=== PATIENT | male | born 1980 | race Caucasian/White ===

== ENCOUNTER 2023-03-06 07:07 | Observation (INO) | payer BC, SELFPAY ==
--- NOTE | 2023-02-07 13:35 | RAD_ITS ---
EXAM: XR Chest 2 Views INDICATION: Male, 42 years old. Preoperative evaluation TECHNIQUE: PA and lateral views COMPARISON: None FINDINGS: DEVICES: None LUNGS: No confluent air space opacity. No concerning pulmonary nodule. No pleural effusion or pneumothorax. MEDIASTINUM: Cardiac and mediastinal silhouettes are within normal limits. No central pulmonary vascular congestion. . SKELETAL STRUCTURES: No acute skeletal abnormality. Mild multilevel degenerative changes in the spine. UPPER ABDOMEN: Unremarkable RAD/Chest PA and Lateral IMPRESSION: No acute cardiopulmonary disease Electronically Signed: Brayan Mercedes MD at 2:01 EDT ,
--- NOTE | 2023-02-07 13:38 | EKG12_ITS ---
Test Reason : PRE OP Blood Pressure : / mmHG Vent. Rate : 101 BPM Atrial Rate : 101 BPM P-R Int : 160 ms QRS Dur : 080 ms QT Int : 328 ms P-R-T Axes : 037 009 041 degrees QTc Int : 425 ms Sinus tachycardia Possible Inferior infarct , age undetermined Abnormal ECG Confirmed by MICHAEL KENDALL, MEG ([id number]), managing editor MICHEL GUTIÉRREZ ([id number]) on 02/10/2023 8:33:23 AM Referred By: KRISHNA Confirmed By:ADELA RODRIGUEZ MD
[2023-02-07 14:16] LABS: Basophil# 0.09 X10^3/uL; Basophil% 1.1 % (0-1); Eosinophil# 0.34 X10^3/uL; Eosinophils% 4.1 % (0-5); Hematocrit 46.6 % (40-54); Hemoglobin 15.6 g/dL (13.0-16.5); Lymphocyte % 37.7 % (19-41); Mean Corp Hgb Conc 33.5 g/dL (32-36); Mean Corpuscular Volume 92.6 fL (80-94); Monocyte# 0.66 X10^3/uL; NRBC Flagged by Analyzer 0 % (0-5); Neutrophil # 4.02 X10^3/uL (2.7-7.7); Platelet Count 272 K/mm3 (150-450); RBC Distribution Width CV 12.3 % (11.6-14.6); RBC Distribution Width SD 41.6 fl (35.1-43.9); Red Blood Count 5.03 M/mm3 (4.6-6.2); White Blood Count 8.2 K/mm3 (4.4-11.0)
[2023-02-07 14:24] LABS: Prothrombin Time (Protime)PT. 13.6 SECONDS (11.7-14.9)
[2023-02-07 14:25] LABS: Partial Thromboplast Time 27.6 Seconds (24.1-36.2)
[2023-02-07 14:44] LABS: Anion Gap 4 (5-15); BUN 5 mg/dL (7-18); BUN/Creat Ratio 3.6 RATIO (10-20); Calcium,Total 9.1 mg/dL (8.5-10.1); Chloride 108 mmol/L (98-107); Creatinine, Serum 1.38 mg/dL (0.70-1.30); EST Glomerular Filtration Rate 60 mL/min (>60); Est Glom Filt Rate - Afr Amer 73 mL/min (>60); Glucose 92 mg/dL (74-106); Potassium 3.6 mmol/L (3.5-5.1); Sodium Level 139 mmol/L (136-145)
[2023-03-06] VITALS (13 sets, daily range): BP systolic 108–134; BP diastolic 70–95; PULSE 70–89; RESP 16–18; TEMP 36.1–37; O2SAT 94–99; BMI 40.8
[2023-03-06] MEDS: Lactated Ringers 1,000 ML 15 ML IV (06:38)
--- NOTE | 2023-03-06 07:02 | OP.PCM_ITS ---
Report of Operation Date of Procedure: 03/06/23 Surgeon: Yefri Cabrera Type of Anesthesia: General Drains: Hemovac Description of Procedure: Preop diagnosis: 1. Lumbar stenosis, with spondylosis 2. Lumbar degenerative disc disease Postop diagnosis: 1. Lumbar stenosis, with spondylosis 2. Lumbar degenerative disc disease Procedures performed: 1. posterior lumbar interbody fusion 2. Insertion of intervertebral biomechanical device x1 3. Structural allograft for spinal fusion 4. bilateral laminectomies, foraminotomies, facetectomies, decompression of bilateral nerve roots 5. bilateral laminectomies, foraminotomies, facetectomies, decompression of bilateral nerve roots 6. posterolateral fusion 7. Pedicle screw fixation 8. Local autograft for spinal fusion 9. Neuro monitoring bilateral upper and bilateral lower extremities Statement of medical necessity: The patient is a -year-old with intractable back and leg pain. Image studies confirm the above diagnoses. They have failed conservative treatments to include medications physical therapy and injections and have opted for operative intervention understanding the risk to include but not limited to infection, bleeding, damage to nerves arteries and veins, possibility of spinal fluid leak, nonunion, hardware failure, continued pain, need for further surgery, deep vein thrombosis, pulmonary embolism, heart attack, risk of stroke or . Description of the procedure: The patient was identified in the preoperative holding area. There they received preoperative IV antibiotics and was then transferred to the operative suite. Once in the operative suite after general endotracheal anesthesia was established, the patient was positioned prone on the [facility] operating table. All bony prominences were padded accordingly. The lumbar spine was prepped and draped in a standard fashion. Bear hugger's were not turned on until the drapes were placed and sealed with Ioban. A midline incision was made and taken down to the fascia. The fascia was divided and subperiosteal dissection was taken down to the level of the transverse processes and sacral ala of and bilaterally. Deep retractors were placed. A bone scalpel was used to make cuts in the lamina and then a series of rongeurs and Kerrisons were used removing the spinous process and lamina of L5. Then facetectomies of greater than 50% were performed as well as foraminotomies decompressing the bilateral nerve roots. Given the severity of the stenosis I needed to perform wide bilateral laminectomies and near complete facetectomies in order to decompress the neural elements. Disc created instability necessitating the fusion. I then proceeded with interbody fusion. The nerve roots and dura were identified and retracted medially. A knife was utilized to perform an annulotomy at . Endplate elevators, curettes, and pituitaries were utilized to remove disc material. Endplates were prepared with a rasp. An appropriate sized intervertebral peek cage device measuring was packed with structural allograft and impacted into position completing the posterior lumbar interbody fusion at the level. I then proceeded with pedicle screw fixation. Starting points were found at the junction of the superior articular process and transverse processes and sacral ala. A power bur was used for the starting points. Pedicle probes were placed bilaterally and then screws were placed bilaterally at and screws were placed bilaterally at . The screws were tested with intraoperative neurophysiologic monitoring and tested within normal limits. Connector rods were applied and secured with set screws. I then proceeded with the posterolateral fusion. This was accomplished by decorticating the transverse processes bilaterally at and the sacral ala bilaterally at . This decorticated bone was then bridged with local autograft from the decompression as well as morselized cancellous allograft completing the posterolateral fusion of the level. The incision was thoroughly irrigated. Tisseel was placed over the dura as a hemostatic agent. A deep drain was placed. The fascia was closed with #1 Vicryl, subcutaneous with 2-0 Vicryl and skin with 2-0 nylon. A sterile dressing was applied with 4 x 4's ABD and tape. Sponge instrument and needle counts were correct at the end of the case. Neurophysiologic monitoring was maintained at baseline throughout the duration of the case. The patient was extubated and taken to the PACU without incident Grafts/Implants Used: Unified spine Complications None Admit VTE Documentation VTE Present on Admission: No
--- NOTE | 2023-03-06 07:02 | PN.ORTHO_ITS ---
Subjective Subjective Seen and examined postop. Resting comfortably. Pain controlled. No complaints Objective Data Objective Data Vital Signs: Vital Signs Temp Pulse Resp BP Pulse Ox O2 Del Method 98.4 F 70 18 131/78 H 98 Room Air 03/06/23 06:34 03/06/23 06:34 03/06/23 06:34 03/06/23 06:34 03/06/23 06:34 03/06/23 06:34 Oxygen Delivery Method Room Air Weight: 268 lb 15.423 oz Body Mass Index (BMI) 40.8 Lab / Micro Data 02/07/23 14:02 02/07/23 14:02 Micro: Microbiology 02/07/23 14:02 Swab (Method) Nasal Screen MRSA/MSSA - Final Physical Exam Const alert, oriented x3 and no apparent distress General Appearance: cooperative and comfortable HEENT normocephalic and head/scalp atraumatic Head and Scalp: normal to inspection Neck full ROM General: normal visual inspection Chest inspection of chest normal and palpation of chest normal Resp normal respiratory effort and normal air movement Cardio regular rate, regular rhythm and peripheral pulses 2+ throughout GI soft to palpation, non-tender and non-distended Back/Spine Back/Spine Narrative: Dressing clean dry and intact. Drain in place and functioning Cervical Spine: cervical ROM normal Thoracic Spine / Upper Back: normal to inspection Lumbar Spine / Lower Back: normal to inspection Extremity normal to inspection, full ROM, normal capillary refill, no clubbing, cyanosis or edema and no calf tenderness Skin no rashes or lesions noted General Skin Exam: no breakdown Neuro oriented x3, CN's II-XII intact bilaterally, moves all extremities, no focal mot or deficits, no sensory deficits noted and deep tendon reflexes 2+ bilaterally Motor Exam: muscle tone normal throughout Assessment & Plan Assessment/Plan (1) Lumbar stenosis: PLAN: Admit to floor See orders Discharge planning, likely home tomorrow
--- NOTE | 2023-03-06 07:02 | PCM.OPRPT ---
Report of Operation Date of Procedure: 03/06/23 Surgeon: Yefri Cabrera patient registrar: Tamy Nichols Type of Anesthesia: General Drains: Hemovac Estimated Blood Loss (mL): 1100 cc Fluids Replaced: 2700 cc Description of Procedure: Preop diagnosis: 1. Lumbar stenosis, L4-5, L5-S1 with spondylosis 2. Lumbar degenerative disc disease L4-5, L5-S1 Postop diagnosis: 1. Lumbar stenosis, L4-5, L5-S1 with spondylosis 2. Lumbar degenerative disc disease L4-5, L5-S1 Procedures performed: 1. L4-5 posterior lumbar interbody fusion 2. L5-S1 posterior lumbar interbody fusion 3. Insertion of intervertebral biomechanical device x 2 4. Structural allograft for spinal fusion 5. L4 bilateral laminectomies, foraminotomies, facetectomies, decompression of bilateral nerve roots 6. L5 bilateral laminectomies, foraminotomies, facetectomies, decompression of bilateral nerve roots 7. S1 bilateral laminectomies, foraminotomies, facetectomies, decompression of bilateral nerve roots 8. L4-5 posterolateral fusion 9. L5-S1 posterolateral fusion 10. Pedicle screw fixation 11. Local autograft for spinal fusion 12. Neuro monitoring bilateral upper and bilateral lower extremities Statement of medical necessity: The patient is a 42-year-old male with intractable back and leg pain. Image studies confirm the above diagnoses. They have failed conservative treatments to include medications physical therapy and injections and have opted for operative intervention understanding the risk to include but not limited to infection, bleeding, damage to nerves arteries and veins, possibility of spinal fluid leak, nonunion, hardware failure, continued pain, need for further surgery, deep vein thrombosis, pulmonary embolism, heart attack, risk of stroke or . Description of the procedure: The patient was identified in the preoperative holding area. There they received preoperative IV antibiotics and was then transferred to the operative suite. Once in the operative suite after general endotracheal anesthesia was established, the patient was positioned prone on the [facility] operating table. All bony prominences were padded accordingly. The lumbar spine was prepped and draped in a standard fashion. Bear hugger's were not turned on until the drapes were placed and sealed with Ioban. A midline incision was made and taken down to the fascia. The fascia was divided and subperiosteal dissection was taken down to the level of the transverse processes and sacral ala of L4, L5 and S1 bilaterally. Deep retractors were placed. A bone scalpel was used to make cuts in the lamina and then a series of rongeurs and Kerrisons were used removing the spinous process and lamina of L4, L5 and S1. Then facetectomies of greater than 50% were performed as well as foraminotomies decompressing the bilateral nerve roots. Given the severity of the stenosis I needed to perform wide bilateral laminectomies and near complete facetectomies in order to decompress the neural elements. Disc created instability necessitating the fusion. I then proceeded with interbody fusion. The nerve roots and dura were identified and retracted medially. A knife was utilized to perform an annulotomy at L4-5. Endplate elevators, curettes, and pituitaries were utilized to remove disc material. Endplates were prepared with a rasp. An appropriate sized intervertebral peek cage device measuring 12 mm was packed with structural allograft and impacted into position completing the posterior lumbar interbody fusion at the L4-5 level. The same steps were repeated at L5-S1 with a laminotomy performed. An appropriate sized intervertebral peek cage device measuring 11 mm was packed with structural allograft and impacted into position completing the posterior lumbar interbody fusion at the L5-S1 level. I then proceeded with pedicle screw fixation. Starting points were found at the junction of the superior articular process and transverse processes and sacral ala. A power bur was used for the starting points. Pedicle probes were placed bilaterally and then 6.5 x 55 mm screws were placed bilaterally at L4 and L5, and 6.5 x 45 mm screws were placed bilaterally at S1. The screws were tested with intraoperative neurophysiologic monitoring and tested within normal limits. Connector rods were applied and secured with set screws. I then proceeded with the posterolateral fusion. This was accomplished by decorticating the transverse processes bilaterally at L4 and L5 and the sacral ala bilaterally at S1. This decorticated bone was then bridged with local autograft from the decompression as well as morselized cancellous allograft completing the posterolateral fusion of the L4-5 and L5-S1 levels. The incision was thoroughly irrigated. Tisseel was placed over the dura as a hemostatic agent. A deep drain was placed. The fascia was closed with #1 Vicryl, subcutaneous with 2-0 Vicryl and skin with 2-0 nylon. A sterile dressing was applied with 4 x 4's ABD and tape. Sponge instrument and needle counts were correct at the end of the case. Neurophysiologic monitoring was maintained at baseline throughout the duration of the case. The patient was extubated and taken to the PACU without incident Tamy Jacques PA-C was present during the entire duration of the case and necessary for critical parts of the case including retraction and closure Grafts/Implants Used: Unified spine Complications None Admit VTE Documentation VTE Present on Admission: No
--- NOTE | 2023-03-06 07:02 | PCM.DC.SUM ---
Providers Date of Admission: 03/06/23 Primary Care Physician: Dr. Darrell Troncoso MD Reason For Visit: Post Lum Interbody Fusion [place] Two Medications at Discharge Home Medications acetaminophen 500 mg/15 mL oral liquid (Pain Relief Adult) 500 mg PO Q6H PRN pain 02/06/23 cetirizine 10 mg capsule (All Day Allergy (cetirizine)) 10 mg PO DAILY PRN allergy symptoms 02/06/23 famotidine 10 mg chewable tablet 10 mg PO TID GERD 02/06/23 Hospital Course Operations - (L4-5, L5-S1 posterior lumbar interbody fusion, decompression, posterior spinal fusion with instrumentation, use of allograft) Summary of Care Provided Minutes Spent on Discharge: 15 Hospital Course: The patient is a 42-year-old male who underwent L4-S1 fusion on 03/06/2023. He was subsequently admitted. The hospitalist was consulted for medical management. He progressed well. His pain was controlled and he was mobilizing well. His drain was pulled on postoperative day 1. He was subsequently discharged home on 03/07/2023 to follow-up with Dr. Cabrera in 3 weeks Physical Exam Const alert, oriented x3 and no apparent distress General Appearance: cooperative, comfortable and well kempt HEENT normocephalic and head/scalp atraumatic Head and Scalp: normal to inspection Eyes EOMs intact bilaterally and conjunctivae normal Neck full ROM General: normal visual inspection Chest inspection of chest normal and palpation of chest normal Resp normal respiratory effort and normal air movement Effort and Inspection: able to speak in complete sentences Cardio regular rate and peripheral pulses 2+ throughout GI soft to palpation, non-tender and non-distended Back/Spine Back/Spine Narrative: Dressing clean dry and intact. Incision well approximated with interrupted sutures in place. No erythema tenderness drainage or fluctuance Cervical Spine: cervical ROM normal Thoracic Spine / Upper Back: normal to inspection Lumbar Spine / Lower Back: normal to inspection Extremity normal to inspection, full ROM, normal capillary refill, no clubbing, cyanosis or edema and no calf tenderness Skin no rashes or lesions noted General Skin Exam: no breakdown Neuro oriented x3, CN's II-XII intact bilaterally, moves all extremities, no focal motor deficits, no sensory deficits noted and deep tendon reflexes 2+ bilaterally Motor Exam: strength 5/5 throughout and muscle tone normal throughout Weight / BMI Weight Weight: 268 lb 15.423 oz Body Mass Index (BMI) 40.8 ABG / Lab / Microbiology Data 02/07/23 14:02 02/07/23 14:02 Microbiology: Microbiology 02/07/23 14:02 Swab (Method) Nasal Screen MRSA/MSSA - Final D/C Instructions Discharge Diet: No restrictions Additional Activity Instructions: Wear back brace at all times. No repetitive bending twisting or lifting greater than 5 pounds Call your doctor if your incision/area has: Continuous Slow Oozing, Sudden Increased Bleeding, Increased Pain/ Swelling, Increased Redness, Foul Smelling Discharge and Swelling at the incision site Call your doctor if you observe: Fever of 101 or Higher, Coldness, Increased Pain, Numbness or Tingling, Change in Color, Inability to urinate, Inability to have a bowel movement, Using more than 1 pad per hour, Shortness of breath, Dizziness, Fainting spells, Swelling in the ankles, Chest pain, Prolonged hiccupping, Increased palpitations (irregular heartbeat), Calf discomfort and Uncontrolled pain Cleanse incision/area with: Do not get Incision Wet and Keep Dressing Clean & Dry Additional Dressing/Incision Instructions: Change dressing daily with iodine gauze and tape. Use waterproof dressing to shower Additional Instructions: 1. During your procedure, you received sedation through your IV. Please follow these instructions for the next 24 hours: Do not drive a motor vehicle, do not drink any alcoholic beverages, and do not sign any legal documents or make personal or business decisions. A responsible adult should stay with you at least 6 hours after the procedure. 2. Keep your surgical site/incision clean and the dressing dry and intact. You may use an ice pack at the surgical site to reduce any swelling or discomfort. 3. Monitor the incision site for any signs or symptoms of infection. Watch for redness, excessive swelling or drainage, or continued pain at the incision site after 3 days. Contact your physician immediately for a fever, chills or a temperature of 101.5? F or greater. 4. Take your medication exactly as prescribed by your physician. Do not attempt to wean yourself off any of your medications even though your pain is improving. This process needs to be carefully monitored by your doctor. Take any antibiotics prescribed exactly as directed and until they are gone. 5. Avoid stretching, bending, pulling, twisting or any sudden movements. Do not bend or twist at the waist. Wear back brace at all times 6. No lifting greater than 5 pounds. 7. Do not operate a motor vehicle, equipment or a power tool while taking pain medication 8. Do not have any manipulation done by a chiropractor or any other physician without first consulting with the surgeon 9. Please contact our office if you are even scheduled for a CT scan or an MRI. 10. Please call us if you have any questions, problems or concerns. Please Follow Up With: Yefri Cabrera DO When: 3 weeks Meaningful Use Info Meaningful Use Diagnoses (Choose all that apply): None applicable Discharge Plan Admission Admit Date/Time: 03/06/23 07:07 Attending Provider: Yefri Cabrera Primary Care Provider: Darrell Troncoso Consulting Providers: Tootie Irizarry; Pj Jacob Instructions Additional Instructions / Restrictions: 1. During your procedure, you received sedation through your IV. Please follow these instructions for the next 24 hours: Do not drive a motor vehicle, do not drink any alcoholic beverages, and do not sign any legal documents or make personal or business decisions. A responsible adult should stay with you at least 6 hours after the procedure. 2. Keep your surgical site/incision clean and the dressing dry and intact. You may use an ice pack at the surgical site to reduce any swelling or discomfort. 3. Monitor the incision site for any signs or symptoms of infection. Watch for redness, excessive swelling or drainage, or continued pain at the incision site after 3 days. Contact your physician immediately for a fever, chills or a temperature of 101.5? F or greater. 4. Take your medication exactly as prescribed by your physician. Do not attempt to wean yourself off any of your medications even though your pain is improving. This process needs to be carefully monitored by your doctor. Take any antibiotics prescribed exactly as directed and until they are gone. 5. Avoid stretching, bending, pulling, twisting or any sudden movements. Do not bend or twist at the waist. Wear back brace at all times 6. No lifting greater than 5 pounds. 7. Do not operate a motor vehicle, equipment or a power tool while taking pain medication 8. Do not have any manipulation done by a chiropractor or any other physician without first consulting with the surgeon 9. Please contact our office if you are even scheduled for a CT scan or an MRI. 10. Please call us if you have any questions, problems or concerns. Discharge Orders/Prescriptions Prescriptions: Continued All Day Allergy (cetirizine) 10 mg capsule 10 mg PO DAILY PRN (Reason: allergy symptoms) famotidine 10 mg tablet,chewable 10 mg PO TID acetaminophen [Pain Relief Adult] 500 mg/15 mL liquid 500 mg PO Q6H PRN (Reason: pain) Referrals / Follow Up: Yefri Cabrera DO [Med Staff - Active Staff] - Disposition Disposition (needs filled in before D/C Order can be placed): Home, Self Care
[2023-03-06] MEDS: Cefazolin 2 GM in 0.9% Normal Saline 100 ML IV (07:50)
--- NOTE | 2023-03-06 07:50 | RAD_ITS ---
STUDY: X-RAY - LUMBAR SPINE REASON FOR EXAM: Male, 42 years old. Intraoperative digital documentation views of L4-S1 fusion. TECHNIQUE: 5 intraoperative digital documentation view(s) of the lumbar spine were obtained. COMPARISON: None FINDINGS: 5 intraoperative digital documentation views show localizer at L3-4 and posterior fusion from L4 to S1. RAD/Lumbar Spine 2 or 3 Views IMPRESSION: Intraoperative digital documentation views. Electronically Signed: Stefan Neri MD at 12:55 EDT ,
[2023-03-06] MEDS: THROMBIN (RECOMBINANT) 20,000 UNIT VIAL 20000 UNIT TOPICAL (11:14)
[2023-03-06] MEDS: Heparin 10,000 UNITS/10 ML Vial IV (11:23)
[2023-03-06] MEDS: Bupivacaine 0.25% 30 ML Vial (12:19)
[2023-03-06] MEDS: Lactated Ringers 1,000 ML 100 ML IV (15:05)
[2023-03-06] MEDS: Cefazolin 1 GM/50 ML BAG IV (16:27)
--- NOTE | 2023-03-06 18:07 | PN_ITS ---
Subjective Subjective Patient is a 42-year-old male with a past medical history as outlined who was admitted to the service of spine surgery on account of lumbar stenosis. He had been having severe intractable back and leg pain and had failed conservative treatment including medications, physical therapy and injections. He had therefore opted for surgical management. He had posterior lumbar interbody fusion of L4-L5 as well as L5-S1 and bilateral laminectomies, foraminotomies, facetectomies and decompression of bilateral nerve roots of L4, L5, and S1 1. Today's postop day 0. Hospitalist goals was consulted for medical management. Patient seen and examined after surgery. He had no active complaints. He felt well. Pain was well controlled. Review of systems otherwise negative. Labs and vitals reviewed. Home medication reviewed and reconciled. Objective Data Objective Data Vital Signs: Vital Signs Temp Pulse Resp BP Pulse Ox O2 Del Method O2 Flow Rate 98.1 F 88 18 130/88 H 99 Nasal Cannula 3 03/06/23 17:51 03/06/23 17:51 03/06/23 17:51 03/06/23 17:51 03/06/23 17:51 03/06/23 17:51 03/06/23 17:51 Oxygen Flow Rate (L/min) 3 Oxygen Delivery Method Nasal Cannula Weight: 268 lb 15.423 oz Body Mass Index (BMI) 40.8 Intake & Output: Intake and Output for Last 24 Hours 03/04/23 03/05/23 03/06/23 23:59 23:59 23:59 Intake Total 2510 / 2510 Output Total 1395 / 1395 Balance 1115 / 1115 Lab / Micro Data 02/07/23 14:02 02/07/23 14:02 Micro: Microbiology 02/07/23 14:02 Swab (Method) Nasal Screen MRSA/MSSA - Final Radiography Diagnostic Testing: Radiology Impression Lumbar Spine X-Ray 03/06/23 07:50 IMPRESSION: Intraoperative digital documentation views. Electronically Signed: Stefan Neri MD at 12:55 EDT , Physical Exam Const alert, oriented x3 and no apparent distress General Appearance: cooperative HEENT normocephalic, head/scalp atraumatic and moist oral mucous membranes Eyes PERRL and EOMs intact bilaterally Neck no lymphadenopathy, supple and no JVD Lymph Lymphatic: no lymphadenopathy noted and no lymphedema noted Resp normal respiratory effort, normal air movement and clear to auscultation bilaterally Cardio regular rate, regular rhythm, S1 normal heart sound, S2 normal heart sound and no murmurs GI normal to inspection, nondistended, normoactive bowel sounds, soft to palpation, non-tender and non-distended Extremity normal capillary refill, no clubbing, cyanosis or edema and no calf tenderness Skin Skin Narrative: intact dressing over surgical site Neuro CN's II-XII intact bilaterally and no focal motor deficits Motor Exam: strength 5/5 throughout and general weakness Psych thought process normal, cooperative and affect normal Appearance: appropriate Assessment & Plan Assessment/Plan (1) Lumbar stenosis: PLAN: Plan #Lumbar stenosis * Failed conservative management with medications, injections and physical therapy. * Had posterior lumbar interbody fusion of L4-L5 and L5-S1 as well as bilateral laminectomies, foraminotomies, facetectomies, mild decompression of bilateral nerve roots of L4, L5, S1. * Management as per primary team spine surgery * Incentive spirometry. Breathing treatments bronchodilators as needed. * Pain management as per primary team. PT OT consult. Fall precautions. * * #GERD: On famotidine DVT prophylaxis: As per primary team Thank you for the courtesy of the consult. We will continue to follow with you. Charges/Coding Visit Charges Inpatient E&M: 18772 Subs Hosp L2
[2023-03-06] MEDS: Morphine 4 MG/ML Syringe IV (20:23)
[2023-03-06] MEDS: Acetaminophen 650 MG/20 ML UDC 1000 MG PO (20:26)
[2023-03-07] MEDS: Lactated Ringers 1,000 ML 100 ML IV (01:15)
[2023-03-07] MEDS: Cefazolin 1 GM/50 ML BAG IV (01:15)
[2023-03-07] MEDS: Morphine 4 MG/ML Syringe IV (01:16)
[2023-03-07] MEDS: Acetaminophen 650 MG/20 ML UDC 1000 MG PO (06:49)
[2023-03-07 06:55] VITALS: BP 129/84; PULSE 93; RESP 18; TEMP 36.7; O2SAT 95
[2023-03-07 08:30] VITALS: BP 96/65; PULSE 89; RESP 18; TEMP 37.2; O2SAT 98
--- NOTE | 2023-03-07 10:25 | CASEMGMT ---
STACY PROCTOR Assessment: Face to Face with pt for initial transition planning/care coordination assessment. RN HITESH introduced self and role at [facility], pt voices understanding and consents to assessment. Pt is A/O x4 and answers all questions appropriately at this time. Pt sitting on edge of bed in no distress. Father came in room during assessment. Care providers, pharmacy, and demographics verified/updated. Admitting Dx: post lumbar interbody fusion PCP:Furness Specialists:moreno Cabrera Insurance: [employer] Pres[employer] Benefit: yes LNOK: Alberto Arreola, father Living Arrangements: Pt lives with mother and father. He rents a room in a single story home with 5 steps to enter with a rail on both sides. Pt reports he is I in ADL's and denies concerns at home. Transportation: Pt drives self and denies concerns with transportation. Pt father will transport him to medical appts until he can drive again. DME/HHC/SNF:Pt has a shower chair at home. Pt states he is going to get a cane for his use. Pt denies hx of HHC or SNF stays. Pt states no concerns with going home at time of dc. Pt states no further concerns/needs. CM to follow. Advised pt to ask CM if any further question/concerns/needs arise, voices understanding. Pt Goal: Home Plan: Home
[2023-03-07 10:47] VITALS: BP 119/91; PULSE 80; RESP 18; TEMP 37; O2SAT 98
== END 2023-03-07 10:49 | disposition home or self-care (01) ==
LOC: SDC 09:11 → MS3 03-07 07:07
PROVIDERS: Admitting Provider Orthopaedic Surgery; PCP Family Medicine; Referring Provider Orthopaedic Surgery; Visit Provider Orthopaedic Surgery
PROC: 0SG10AJ Fusion of 2 or more Lumbar Vertebral Joints with Interbody Fusion Device, Posterior Approach, Anterior Column, Open Approach (ICD-10-PCS; CPT 22630; principal; 2023-03-06 07:00)
DX: M47.816 Spondylosis without myelopathy or radiculopathy, lumbar region (principal); M48.07 Spinal stenosis, lumbosacral region; K21.9 Gastro-esophageal reflux disease without esophagitis; M51.36 Other intervertebral disc degeneration, lumbar region; M47.817 Spondylosis without myelopathy or radiculopathy, lumbosacral region; M51.37 Other intervertebral disc degeneration, lumbosacral region; M48.061 Spinal stenosis, lumbar region without neurogenic claudication; G47.30 Sleep apnea, unspecified; E78.00 Pure hypercholesterolemia, unspecified; J45.909 Unspecified asthma, uncomplicated; F32.A Depression, unspecified; Z79.899 Other long term (current) drug therapy; R00.0 Tachycardia, unspecified; R94.31 Abnormal electrocardiogram [ECG] [EKG]
CPT/HCPCS: 22633; 63052; 63053; 20936; 22853 ×2; 22842; 22634; 20930; 00670; 36415; 71046; 72100; 76000; 80048; 85025; 85610; 85730; 87081; 93005; 94668; 96361; 96365; 96366; 96375; 96376; 97161; 99221; C1713; J7120; G0378; J2405